=== PATIENT | male | born 1960 | race Caucasian/White ===

== ENCOUNTER 2017-08-27 04:27 | Emergency (ER) | payer OTHER ==
[2017-08-27] MEDS ORDERED: PROPARACAINE 0.5% 15 ML OPHT DROP ONE (04:38)
[2017-08-27] MEDS ORDERED: PROPARACAINE/FLUORESCEIN SOD 5 ML OPHT.BTL ONE (04:39)
--- NOTE | 2017-08-27 04:42 | EDPHY ---
H & P Stated Complaint: SOMETHING IN L EYE/USED CHAINSAW YEST, TRIED FLUSHING Time Seen by Provider: 08/27/17 04:42 HPI/ROS: HPI CHIEF COMPLAINT: Left eye pain. HISTORY OF PRESENT ILLNESS: This patient very pleasant 57-year-old male, is otherwise healthy with no significant medical history he presents emergency room with left eye discomfort. On Monday he developed left eye discomfort rather severe. The patient reports to me that he was cutting trees he did have his glasses on as well as a mesh mask over his glasses to protect him. He states after cutting trees he noticed increasing pain to his left eye. It became rather severe this evening and very tearful as pain became worse this last evening decided come the emergency room for evaluation. Of note here in emergency room the patient's visual acuity is reviewed. It is somewhat poor due to him using corrective lenses there are out of date. He has no loss of vision. There is no headache. He has not any fever or purulent discharge from his left eye. The pain is only located left eye. Upon arrival to the emergency room floor seen with proparacaine was instilled into his eye. This gave him great relief. It is noted that with Wood's lamp there was uptake over the cornea at the 6 o'clock position a speck corneal abrasion. I do not see a foreign body. His lids were everted. Extraocular movements intact. No proptosis. Globe is soft and visual acuity reviewed. Clinically he has a corneal abrasion at the 6 o'clock position of the left eye. Past Medical History: Denies significant medical history Past Surgical History: Denies significant surgical history Social History: Denies daily use drugs alcohol tobacco. Family History: Noncontributory ROS REVIEW OF SYSTEMS: A comprehensive 10 point review of systems is otherwise negative aside from elements mentioned in the history of present illness. Exam Constitutional triage nursing summary reviewed, vital signs reviewed, awake/ alert. Eyes Right Eye normal. Left EYE: It is noted that with Wood's lamp there was uptake over the cornea at the 6 o'clock position a speck corneal abrasion. I do not see a foreign body. His lids were everted. Extraocular movements intact. No proptosis. Globe is soft and visual acuity reviewed. Lids everted no foreign bodies visualized. Visual acuity reviewed. No metallic object seen. The conjunctiva of the left eye is injected. Clear tears. HENT normal inspection, atraumatic, moist mucus membranes, no epistaxis, neck supple/ no meningismus, no raccoon eyes. Respiratory clear to auscultation bilaterally, normal breath sounds, no respiratory distress, no wheezing. Cardiovascular rate normal, regular rhythm, no murmur, no edema, distal pulses normal. Gastrointestinal soft, non-tender, no rebound, no guarding, normal bowel sounds, no distension, no pulsatile mass. Genitourinary no CVA tenderness. Musculoskeletal no midline vertebral tenderness, full range of motion, no calf swelling, no tenderness of extremities, no meningismus, good pulses, neurovascularly intact. Skin pink, warm, & dry, no rash, skin atraumatic. Neurologic awake, alert and oriented x 3, AAOx3, moves all 4 extremities equally, motor intact, sensory intact, CN II-XII intact, normal cerebellar, normal vision, normal speech. Psychiatric normal mood/affect. Heme/Lymph/Immune no lymphadenopathy. Differential Diagnosis: Includes but is not limited to in a particular order corneal abrasion, corneal tear, retained foreign body, glaucoma, conjunctivitis Medical Decision Making: Plan for this patient full eye exam. Fluorescein with proparacaine was instilled in his left eye he is uptake at the 6 o'clock position consistent with a punctate corneal abrasion. Re-evaluation: 0503: Fluorescein uptake at the 6 o'clock position consistent with a corneal abrasion. I recommend patient does cool compresses he does not rub his eye. I recommend he takes antibiotic eyedrops as prescribed. Additionally I will consult Ophthalmology for close follow-up. His pain is completely resolved with proparacaine instilled. 0516: Spoke with Ophthalmology Dr. Rosas, discussed case in detail. Will be glad to see the patient on Monday. Recommend started on Ocuflox eyedrops. I discussed this with the patient is to call Monday morning for follow-up appointment. Additionally given its long weekend holiday weekend it is Monday if he has any worsening symptoms pain drainage questions concerns he should return emergency room. He understands. Source: Patient - Personal History Current Tetanus Diphtheria and Acellular Pertussis (TDAP): Yes - Medical/Surgical History Hx Asthma: No Hx Chronic Respiratory Disease: No Hx Diabetes: No Hx Cardiac Disease: No Hx Renal Disease: No Hx Cirrhosis: No Hx Alcoholism: No Hx HIV/AIDS: No Hx Splenectomy or Spleen Trauma: No Other PMH: DENIES - Social History Smoking Status: Never smoked Constitutional: Initial Vital Signs Temperature (C) 36.5 C 08/27/17 04:32 Heart Rate 61 08/27/17 04:32 Respiratory Rate 16 08/27/17 04:32 Blood Pressure 123/83 H 08/27/17 04:32 O2 Sat (%) 97 08/27/17 04:32 O2 Delivery Mode Room Air Allergies/Adverse Reactions: No Known Allergies Allergy (Unverified 08/27/17 04:31) Home Medications: Medication Instructions Recorded NK [No Known Home Meds] 08/27/17 Medical Decision Making - Data Points Medications Given: Discontinued Medications Ibuprofen (Motrin) 800 mg PO EDNOW ONE Stop: 08/27/17 05:06 Last Admin: 08/27/17 05:06 Dose: 800 mg Departure - Departure Disposition: Home, Routine, Self-Care Clinical Impression: Corneal abrasion Qualifiers: Encounter type: initial encounter Laterality: left Qualified Code(s): S05.02XA - Injury of conjunctiva and corneal abrasion without foreign body, left eye, initial encounter Instructions: Corneal Abrasion (ED) Additional Instructions: 1. Do not rub your eye. 2. Cool compresses 3. Ibuprofen for pain control. 4. Antibiotic eyedrops as prescribed. 5. Please follow up with Ophthalmology. Call Monday for follow-up appointment. Referrals: Robert Nunez MD [Primary Care Provider] - As per Instructions Jelena Rosas MD [Medical Doctor] - As per Instructions
[2017-08-27] MEDS ORDERED: IBUPROFEN 800 MG TAB PO ONE ×2 (05:05)
[2017-08-27] MEDS ORDERED: OFLOXACIN 0.3% SOLN PREPACK OPHT.BTL TAKEHOME ONE (05:17)
[2017-08-27 05:37] VITALS: BP 120/76
== END 2017-08-27 05:36 | disposition home or self-care (01) ==
DX: S05.02XA Injury of conjunctiva and corneal abrasion without foreign body, left eye, initial encounter (principal); X58.XXXA Exposure to other specified factors, initial encounter; Y99.8 Other external cause status; Y93.89 Activity, other specified